=== PATIENT | female | born 1985 | race Caucasian/White ===

== ENCOUNTER 2019-01-11 20:19 | Emergency (ER) | payer SELFPAY ==
[2019-01-11 20:50] VITALS: BP 111/63
[2019-01-12] MEDS ORDERED: HYDROCODONE/ACETAMINOPHEN 5-325 MG TABLET PO ONE (00:34)
[2019-01-12] MEDS ORDERED: PREDNISONE 20 MG TABLET PO ONE (00:34)
[2019-01-12] MEDS ORDERED: AMOXICILLIN TRIHYDRATE 500 MG CAPSULE PO ONE (00:34)
--- NOTE | 2019-01-12 00:40 | ER Document Report ---
ED Medical Screen (RME) - General Chief Complaint: Sore Throat Stated Complaint: SORE THROAT Time Seen by Provider: 01/12/19 00:34 Mode of Arrival: Ambulatory Information source: Patient TRAVEL OUTSIDE OF THE [place] IN LAST 30 DAYS: No - HPI Patient complains to provider of: Very sore throat, hurts to swallow Onset: Other - 2 days ago Onset/Duration: Sudden Quality of pain: Sharp Severity: Severe Pain Level: 5 Associated Symptoms: Chills, Fever, Headache, Nausea. denies: Vomiting Exacerbated by: Other - Eating and drinking Relieved by: Denies Similar symptoms previously: No Recently seen / treated by doctor: No Notes: 01/12/19 00:35 33-year-old female with severe sore throat and pain with swallowing. Symptoms started acutely 2 days ago. Patient reports headache, stomachache, fever, painful swallowing and sore throat. - Related Data Allergies/Adverse Reactions: No Known Allergies Allergy (Unverified 02/08/13 21:48) Past Medical History - General Information source: Patient - Social History Frequency of alcohol use: None Drug Abuse: None Lives with: Alone Family history: Reviewed & Not Pertinent Pulmonary Medical History: Reports: Hx COPD Psychiatric Medical History: Reports: Hx Attention Deficit Hyperactivity Disorder - Immunizations Hx Diphtheria, Pertussis, Tetanus Vaccination: Yes Review of Systems - Review of Systems Notes: Constitutional: Positive reported fever EENT: No eye redness. No eye pain. No ear pain. Positive sore throat and painful swallowing Cardiovascular: No chest pain. No palpitations. Respiratory: No cough. No shortness of breath. No respiratory distress. Gastrointestinal: Positive for stomachache, nausea and vomiting. No diarrhea. Genitourinary: Atraumatic. No lesions. No pain. No discharge. Musculoskeletal: Atraumatic. No swelling. No deformities. Skin: No rash or lesions. Lymphatic: No swollen lymph nodes. Neurologic: Positive for headache but no syncope Psychiatric: No suicidal or homicidal ideation. Physical Exam - Vital signs Vitals: Temp Pulse Resp BP Pulse Ox 99.0 F 78 16 111/63 99 01/11/19 20:46 01/11/19 20:46 01/11/19 20:46 01/11/19 20:46 01/11/19 20:46 - Notes Notes: General: Well-developed, well-nourished. In no acute distress. Non-toxic appearing. Cardiac: Well-perfused. Regular rate and rhythm. No murmurs, rubs, or gallops. Pulmonary: No respiratory distress. No cyanosis. Bilateral lung fiels are clear to auscultation. Abdominal: Non-distended. Non-rigid. Bowels sounds are present in all four quadrants. No guarding or rebound. HEENT: Head is atraumatic. Conjunctivae not reddened. No tearing. PERRL. EOMI. Orbits atraumatic. No periorbital swelling or erythema. Oropharynx is without erythema, swelling, or exudates. 2+ exudative tonsils. Slightly muffled voice. Tolerating secretions well. No dyspnea or dysphagia Neck: Supple. No adenopathy. No meningismus. Dermatologic: Warm with good turgor. No rash. Atraumatic. Chest: Atraumatic. No chest wall tenderness to palpation. Musculoskeletal: Moves all extremities well. No range of motion deficits. no muscular or joint tenderness. No paraspinal muscle tenderness. no midline spinal tenderness or step-off. Genitourinary: Examination deferred Neurologic: No gross neurologic deficits. Psychiatric: Normal mood. Course - Re-evaluation Re-evalutation: 01/12/19 00:38 Strep screen is negative I will go ahead and treat with antibiotics - Vital Signs Vital signs: Temp Pulse Resp BP Pulse Ox 99.0 F 78 16 111/63 99 01/11/19 20:46 01/11/19 20:46 01/11/19 20:46 01/11/19 20:46 01/11/19 20:46 Doctor's Discharge - Discharge Clinical Impression: Exudative tonsillitis Condition: Good Disposition: HOME, SELF-CARE Instructions: Amoxicillin ([facility]), Corticosteroid Medication ([facility]), Tonsillitis ([facility]) Prescriptions: Amoxicillin 1 tab PO TID #30 tab Prednisone [Deltasone 20 mg Tablet] 3 tab PO DAILY 5 Days #15 tablet Referrals: [facility] [Provider Group] - Follow up as needed
== END 2019-01-12 00:52 | disposition home or self-care (01) ==
LOC: ER 20:19
DX: J03.90 Acute tonsillitis, unspecified (principal); R50.9 Fever, unspecified; R51 Headache; R11.0 Nausea; J44.9 Chronic obstructive pulmonary disease, unspecified
CPT/HCPCS: 99282; 87070; 87880; J7512

== ENCOUNTER 2020-05-01 09:47 | Emergency (ER) | payer MEDICAID ==
[2020-05-01] MEDS ORDERED: IBUPROFEN 600 MG TABLET PO ONE (11:12)
--- NOTE | 2020-05-01 11:15 | ER Document Report ---
ED Medical Screen (RME) - General Chief Complaint: Foot Pain Stated Complaint: ANKLE/FOOT PAIN Time Seen by Provider: 05/01/20 11:04 Primary Care Provider: PURVI DAVIS MD [COMMUNITY BASED STAFF] - Follow up as needed CORTNEY CASTLE DO [ACTIVE STAFF] - Follow up as needed TRAVEL OUTSIDE OF THE [place] IN LAST 30 DAYS: No - HPI Notes: 05/01/20 11:12 - Related Data Allergies/Adverse Reactions: No Known Allergies Allergy (Verified 05/01/20 11:02) Past Medical History - General Information source: Patient - Social History Chew tobacco use (# tins/day): No Frequency of alcohol use: None Drug Abuse: None Family history: Reviewed & Not Pertinent Pulmonary Medical History: Reports: Hx COPD Renal/ Medical History: Denies: Hx Peritoneal Dialysis Psychiatric Medical History: Reports: Hx Attention Deficit Hyperactivity Disorder - Immunizations Hx Diphtheria, Pertussis, Tetanus Vaccination: Yes Physical Exam - Vital signs Vitals: Temp Pulse Resp BP Pulse Ox 97.9 F 74 16 110/42 L 100 05/01/20 09:59 05/01/20 09:59 05/01/20 09:59 05/01/20 09:59 05/01/20 09:59 Course - Re-evaluation Re-evalutation: 05/01/20 11:14 Afebrile vital stable no distress. Nurses notes reviewed. Patient with 600 mg of ibuprofen. X-ray of right foot and ankle negative for fracture, dislocation or foreign body. Patient given crutches as well as an Aircast. Apply heat 20 minutes on 20 minutes off several times a day. Alternate between Tylenol and ibuprofen for pain control. Advised to follow-up with environmental programs specialist within next 24 to 48 hours. After performing a Medical Screening Examination, I estimate there is LOW risk for OPEN FRACTURE, COMPARTMENT SYNDROME, DEEP VENOUS THROMBOSIS, ACUTE TENDON RUPTURE, or NEUROVASCULAR INJURY thus I consider the discharge disposition reasonable. I have reevaluated this patient multiple times and no significant life threatening changes are noted. The patient and I have discussed the diagnosis and risks, and we agree with discharging home to closely follow-up with their primary doctor or the referral orthopedist with the understanding that symptoms and presentations can change. We also discussed returning to the Emergency Department immediately if new or worsening symptoms occur. We have discussed the symptoms which are most concerning (e.g., changing or worsening pain, numbness, weakness) that necessitate immediate return 05/01/20 12:23 - Vital Signs Vital signs: Temp Pulse Resp BP Pulse Ox 97.9 F 74 16 110/42 L 100 05/01/20 09:59 05/01/20 09:59 05/01/20 09:59 05/01/20 09:59 05/01/20 09:59 Doctor's Discharge - Discharge Clinical Impression: Right ankle pain, Right foot pain Condition: Stable Disposition: HOME, SELF-CARE Instructions: Ankle Stirrup Splint ([facility]), Nate Wrap ([facility]), Use of Crutches ([facility]), Sprained Ankle ([facility]), Soft Ankle Splint ([facility]), Ice & Elevation ([facility]) Additional Instructions: SPRAIN: Your injury is a sprain. A sprain results from stretching or tearing of the ligaments, usually from a twisting injury. The ligaments will require time and protection in order to heal properly. Many sprains are quite disabling and should be taken seriously. The usual initial treatment of sprains is cold packs, elevation, and rest of the injured area. Your physician has assessed the seriousness of your ligament injury, and has outlined a treatment plan. Understand that this treatment may change, depending on how you progress. If a re-examination was recommended, it is important that you follow up as instructed. Call the doctor any time if there is severe pain, numbness, or loss of function in the injured area. NATE WRAP: A compression dressing (nate wrap) has been placed. This helps hold the area still. It limits swelling and internal bleeding. The wrap should be comfortably snug -- not tight. You should feel a sense of pressure, but not severe pain under the wrap. Unless the physician tells you otherwise, you can adjust the wrap for comfort. If the wrap causes symptoms suggesting it's too tight -- uncomfortable pressure, swelling or discoloration beyond the wrap, numbness, or severe pain -- you must loosen the wrap. If these symptoms don't resolve promptly, return for re-evaluation. SPLINT PRECAUTIONS: A splint has been placed. This will protect the area while healing begins. Your problem does NOT normally require a cast. It MUST, however, be held still! Keep the splint on ALL THE TIME until instructed to remove it by the doctor. As you begin to use the area, be careful. You shouldn't do anything which causes discomfort -- you may disturb the injury even with the splint in place. After the initial period of rest and elevation, if splint does not prevent pain when you move, come back. You may require placement of a different splint, or a cast. If there is unexpected severe pain, or numbness, discoloration, or swelling beyond the splint, you should return at once. If you feel that the splint has broken or become loose, come back. SPRAINED ANKLE: Your sprained ankle results from stretching or tearing of the ligaments which support the ankle. This usually results from twisting the foot inward and under. The ligaments will require time and protection in order to heal pro perly. Many ankle sprains are quite disabling, and should be taken seriously. The usual treatment for an ankle sprain is cold packs; protection with tape, splints, or wraps; elevation; and staying off the ankle for at least a day. As the ankle improves, you can walk IF it's not painful to bear weight. Sports are best postponed until healing is complete. More serious sprains usually require strengthening exercises after early healing. Your physician has assessed the seriousness of the ligament injury to your ankle. However, the treatment may change, depending on how your ankle pr ogresses. If further exams were recommended, it is important that you follow through. Call the doctor if your foot becomes numb, painful, or severely swollen. ANKLE STIRRUP SPLINT: You are to use an ankle brace called a stirrup splint. This type of brace allows you to place greater stresses on the ankle without risk of re-injury, and is often used for more severe ankle injuries such as avulsion fractures and ligament ruptures. The splint can be worn over a sock or tape. For proper support, wear the splint with a shoe over it. It's important that the splint fit properly. Adjust the heel tension, if needed. If your splint has air bladders, peel back the bottom of each air bladder, then move the Velcro attachment of the heel strap up or down. Air bladder pressure can be adjusted by pulling up the valve at the top, threading the air tube down into the main bladder, then blowing air into the bladder or squeezing it out. The two sides of the stirrup can be moved forward or back on your ankle by changing the attachment of the main straps. If you are unable to use the ankle comfortably in the splint, return for re-evaluation. SOFT ANKLE SPLINT: You are to wear a cloth ankle splint. This type of splint uses the strength of the fabric to keep the ankle from twisting. The splint can be worn over a sock, if it's more comfortable. If the splint has an adjustable strap, the strap should come up over the OUTER side of the ankle. This strap should be pulled tight enough so you can't turn your ankle in towards you -- it should hold your foot so the sole can't be turned towards at the other foot. You should start out slow. Like a new shoe, the splint may take some "breaking in." You will get blisters if you are too active at first. No ankle brace provides absolute protection. You must avoid activities which put your ankle at risk. Work on strengthening your ankle -- strength is your best protection against re-injury. Call the doctor if you can't do your normal activities in the ankle brace. USE OF CRUTCHES: The doctor has recommended that you not bear weight at this time. You will need to use crutches. Adjust the crutches so the tops come to about two inches under the armpit while you are standing upright. Use your hands -- not your armpits -- to support your weight. To get into a chair, support yourself with one crutch on the injured side. Hold the chair with the other hand, then lower yourself while putting all your weight on the good leg. Going up stairs is `good leg up, step up, then bring up crutches and bad leg.' Down stairs is `bad leg and crutches down, then bring good leg down.' If you develop numbness or swelling in an arm or hand, you are using the crutches incorrectly. Return if you are having any problems with the crutches. ICE & ELEVATION: Apply ice packs frequently against the painful area. Many different schedules are recommended, such as "20 minutes on, 20 minutes off" or "one hour ice, two hours rest." If you need to work, you may need to go longer between ice treatments. You should plan to have the area ice packed AT LEAST one-fourth of the time. The ice should be applied over the wrap, tape, or splint, or over a layer of cloth -- not directly against the skin. Some ice bags have a built-in cloth and can be put directly on the skin. Your injured part should be elevated as much as possible over the next 48 hours. Try to keep the injury above the level of the heart. Avoid use of the injured area. Elevation and rest will decrease the swelling. USE OF [id number] IBUPROFEN: Ibuprofen (Advil, Nuprin, Medipren, Motrin IB) is a medication for fever and pain control. In addition, it has anti- inflammatory effects which may be beneficial, especially in the treatment of injuries. It's best to take ibuprofen with food. Persons with ulcer disease or allergy to aspirin should notify their physician of this before taking ibuprofen. Ibuprofen can be given every four to six hours, for a total of four doses daily. Age Pain or fever dose Antiinflammatory dose 6-8 yr 200 mg (1 tab) 200 mg (1 tab) 9-11 yr 200 mg (1 tab) 200-400 mg (1-2 tab) 11-14 yr 200-400 mg (1-2 tab) 400 mg (2 tab) 15-adult 400 mg (2 tab) 600 mg (3 tab) FOLLOW-UP CARE: If you have been referred to a physician for follow-up care, call the physicians office for an appointment as you were instructed or within the next two days. If you experience worsening or a significant change in your symptoms, notify the physician immediately or return to the Emergency Department at any time for re-evaluation.\\ Follow-up with environmental programs specialist and your primary care provider in the next 24 to 48 hours. Use crutches and Aircast as directed. Alternate between Tylenol and ibuprofen for pain control. Work note has been provided. Return immediately for any new or worsening symptoms. Follow up with primary care provider, call tomorrow to make followup appointment. Forms: Return to Work Referrals: CORTNEY CASTLE DO [ACTIVE STAFF] - Follow up as needed PURVI DAVIS MD [COMMUNITY BASED STAFF] - Follow up as needed
--- NOTE | 2020-05-01 11:36 | RADIOLOGY REPORT (SQ) ---
EXAM DESCRIPTION: ANKLE RIGHT COMPLETE IMAGES COMPLETED DATE/TIME: 05/01/2020 11:29 am REASON FOR STUDY: R ankle/foot pain x 3w, pain distal foot/lat ankle COMPARISON: None. NUMBER OF VIEWS: Three views. TECHNIQUE: AP, lateral, and oblique without weight bearing radiographic images acquired of the right ankle. LIMITATIONS: None. FINDINGS: MINERALIZATION: Normal. BONES: No acute fracture or dislocation. No worrisome bone lesions. No significant osteophytes. JOINTS: No effusions. SOFT TISSUES: No soft tissue swelling. No foreign body. OTHER: No other significant finding. IMPRESSION: NO SIGNIFICANT FINDING IN THE RIGHT ANKLE. NO EXPLANATION FOR PAIN. TECHNICAL DOCUMENTATION: JOB ID: [id number] 2010 [employer]- All Rights Reserved Reading location - IP/workstation name: [email or web address]
--- NOTE | 2020-05-01 11:37 | RADIOLOGY REPORT (SQ) ---
EXAM DESCRIPTION: FOOT RIGHT COMPLETE IMAGES COMPLETED DATE/TIME: 05/01/2020 11:29 am REASON FOR STUDY: R ankle/foot pain x 3w, pain distal foot/lat ankle COMPARISON: None. NUMBER OF VIEWS: Three views. TECHNIQUE: AP, lateral and oblique without weight bearing radiographic images acquired of the right foot. LIMITATIONS: None. FINDINGS: MINERALIZATION: Normal. BONES: No acute fracture or dislocation. No worrisome bone lesions. No significant osteophytes. JOINTS: No erosions. No itzel-articular osteopenia. No chondrocalcinosis. SOFT TISSUES: No swelling. No calcifications. OTHER: No other significant finding. IMPRESSION: NEGATIVE STUDY OF THE RIGHT FOOT. NO EXPLANATION FOR PAIN. TECHNICAL DOCUMENTATION: JOB ID: [id number] 2010 [employer]- All Rights Reserved Reading location - IP/workstation name: [email or web address]
--- NOTE | 2020-05-01 12:24 | ER Document Report ---
HPI - HPI Time Seen by Provider: 05/01/20 11:04 Pain Level: 5 Notes: 35-year-old female presents emergency room complaints of right ankle and right foot pain that started approximately 3 weeks ago, denies any trauma or falling. Reports pain comes and goes, worse with ambulation better with rest. Last menstrual cycle was April 16, 2020. Patient states that she feels a bony mass to the top of her foot near her right ankle. Denies any prior history of right foot or right ankle trauma. Reports pain is 5 out of 5. Has not tried anything [id number] besides BC for her pain. Denies fevers, chills, chest pain,palpitations, shortness of breath, dyspnea, nausea, vomiting, diarrhea, abdominal pain, hematuria,blurred vision, double vision, loss of vision, speech changes, LH, dizziness, syncope, headaches, wheezing, ST, URI, neck pain, weakness, bowel or bladder dysfunction, saddle anesthesia, numbness or tingling in bilateral upper or lower extremities equally, muscle paralysis, weakness in bilateral upper or lower extremities equally or rash. Denies IV drug use. MEDICATIONS: I agree with the patient medications as charted by the RN. ALLERGIES: I agree with the allergies as charted by the RN. PAST MEDICAL HISTORY/PAST SURGICAL HISTORY: Reviewed and agree as charted by RN. SOCIAL HISTORY: Reviewed and agree as charted by RN. FAMILY HISTORY: No significant familial comorbid conditions directly related to patient complaint EXAM: Reviewed vital signs as charted by RN. REVIEW OF SYSTEMS:reviewed vital signs by RN CONSTITUTIONAL : Denies fever, chills, or sweats. Denies recent illness. EENT: Denies eye, ear, throat, or mouth pain or symptoms. Denies nasal or sinus congestion or discharge. Denies throat, tongue, or mouth swelling or difficulty swallowing. CARDIOVASCULAR: Denies chest pain. Denies palpitations or racing or irregular heart beat. Denies ankle edema. RESPIRATORY: Denies cough, cold, or chest congestion. Denies shortness of breath, difficulty breathing, or wheezing. GASTROINTESTINAL: Denies abdominal pain or distention. Denies nausea, vomiting, or diarrhea. Denies blood in vomitus, stools, or per rectum. Denies black, tarry stools. Denies constipation. GENITOURINARY: Denies difficulty urinating, painful urination, burning, frequency, blood in urine, or discharge. FEMALE GENITOURINARY: Denies vaginal bleeding, heavy or abnormal periods, irregular periods. Denies vaginal discharge or odor. MUSCULOSKELETAL: Reports right ankle and right foot pain denies back or neck pain or stiffness. Denies joint pain or swelling. SKIN: Denies rash, lesions or sores. HEMATOLOGIC : Denies easy bruising or bleeding. LYMPHATIC: Denies swollen, enlarged glands. NEUROLOGICAL: Denies confusion or altered mental status. Denies passing out or loss of consciousness. Denies dizziness or lightheadedness. Denies headache. Denies weakness or paralysis or loss of use of either side. Denies problems with gait or speech. Denies sensory loss, numbness, or tingling. Denies seizures. PSYCHIATRIC: Denies anxiety or stress. Denies depression, suicidal ideation, or homicidal ideation. ALL OTHER SYSTEMS REVIEWED AND NEGATIVE. PHYSICAL EXAMINATION: GENERAL: Well-appearing, well-nourished and in no acute distress. HEAD: Atraumatic, normocephalic. EYES: Pupils equal round and reactive to light, extraocular movements intact, conjunctiva are normal. ENT: Nares patent, oropharynx clear without exudates. Moist mucous membranes. NECK: Normal range of motion, supple without lymphadenopathy LUNGS: Breath sounds clear to auscultation bilaterally and equal. No wheezes rales or rhonchi. HEART: Regular rate and rhythm without murmurs ABDOMEN: Soft, nontender, nondistended abdomen. No guarding, no rebound. No masses appreciated. Female : deferred Musculoskeletal: Normal range of motion, no pitting or edema. No cyanosis. right ankle with swelling, tenderness on anterior aspect of ankle. pain with inversion. squeeze test negative. tenderness to 2nd-4th right metatarsals on palpation. dtr +2 BLE. Limited APROM. distal pulses + 2 BLE equally. Full motor and sensory function of bilateral lower extremities. No noted open wounds or abrasion. unable to stand currently due to subjective pain. No vascular compromise. Peroneal nerve is intact with strong eversion and plantar flexion. Negative anterior drawer test. muscle strength 5/5 in BLE equally. NEUROLOGICAL: Cranial nerves grossly intact. Normal speech, normal gait. Normal sensory, motor exams PSYCH: Normal mood, normal affect. SKIN: Warm, Dry, normal turgor, no rashes or lesions noted. Dictation was performed using [employer] MD voice recognition software 05/01/20 12:23 Afebrile vital stable no distress. Nurses notes reviewed. Patient with 600 mg of ibuprofen. X-ray of right foot and ankle negative for fracture, dislocation or foreign body. Patient given crutches as well as an Aircast. Apply heat 20 minutes on 20 minutes off several times a day. Alternate between Tylenol and ibuprofen for pain control. Advised to follow-up with bilingual customer service specialist within next 24 to 48 hours. After performing a Medical Screening Examination, I estimate there is LOW risk for OPEN FRACTURE, COMPARTMENT SYNDROME, DEEP VENOUS THROMBOSIS, ACUTE TENDON RUPTURE, or NEUROVASCULAR INJURY thus I consider the discharge disposition reasonable. I have reevaluated this patient multiple times and no significant life threatening changes are noted. The patient and I have discussed the diagnosis and risks, and we agree with discharging home to closely follow-up with their primary doctor or the referral orthopedist with the understanding that symptoms and presentations can change. We also discussed returning to the Emergency Department immediately if new or worsening symptoms occur. We have discussed the symptoms which are most concerning (e.g., changing or worsening pain, numbness, weakness) that necessitate immediate return 05/01/20 12:23 - CONSTITUTIONAL Constitutional: DENIES: Fever, Chills - EENT EENT: DENIES: Sore Throat, Ear Pain, Eye problems - NEURO Neurology: DENIES: Headache, Weakness, Vision blurred, Dizzinesss / Vertigo - CARDIOVASCULAR Cardiovascular: DENIES: Chest pain - RESPIRATORY Respiratory: DENIES: Trouble Breathing, Coughing - GASTROINTESTINAL Gastrointestinal: DENIES: Abdominal Pain, Black / Bloody Stools - URINARY Urinary: DENIES: Dysuria, Urgency, Frequency - REPRODUCTIVE LMP: 21Sept Reproductive: DENIES: : - MUSCULOSKELETAL Musculoskeletal: REPORTS: Extremity pain - right foot - DERM Skin Color: Normal Past Medical History - General Information source: Patient - Social History Smoking Status: Current Every Day Smoker Chew tobacco use (# tins/day): No Frequency of alcohol use: None Drug Abuse: None Family History: Reviewed & Not Pertinent Patient has homicidal ideation: No Pulmonary Medical History: Reports: Hx COPD Renal/ Medical History: Denies: Hx Peritoneal Dialysis Psychiatric Medical History: Reports: Hx Attention Deficit Hyperactivity Disorder - Immunizations Hx Diphtheria, Pertussis, Tetanus Vaccination: Yes Vertical Provider Document - CONSTITUTIONAL Agree With Documented VS: Yes Exam Limitations: No Limitations General Appearance: WD/WN - INFECTION CONTROL TRAVEL OUTSIDE OF THE [place] IN LAST 30 DAYS: No Course - Vital Signs Vital signs: Temp Pulse Resp BP Pulse Ox 97.9 F 74 16 110/42 L 100 05/01/20 09:59 10 09:59 05/01/20 09:59 05/01/20 09:59 05/01/20 09:59 Discharge - Discharge Clinical Impression: Right ankle pain, Right foot pain Condition: Stable Disposition: HOME, SELF-CARE Instructions: Nate Wrap ([facility]), Ankle Stirrup Splint ([facility]), Use of Crutches ([facility]), Ice & Elevation ([facility]), Soft Ankle Splint ([facility]), Sprained Ankle ([facility]) Additional Instructions: SPRAIN: Your injury is a sprain. A sprain results from stretching or tearing of the ligaments, usually from a twisting injury. The ligaments will require time and protection in order to heal properly. Many sprains are quite disabling and should be taken seriously. The usual initial treatment of sprains is cold packs, elevation, and rest of the injured area. Your physician has assessed the seriousness of your ligament injury, and has outlined a treatment plan. Understand that this treatment may change, depending on how you progress. If a re-examination was recommended, it is important that you follow up as instructed. Call the doctor any time if there is severe pain, numbness, or loss of function in the injured area. NATE WRAP: A compression dressing (nate wrap) has been placed. This helps hold the area still. It limits swelling and internal bleeding. The wrap should be comfortably snug -- not tight. You should feel a sense of pressure, but not severe pain under the wrap. Unless the physician tells you otherwise, you can adjust the wrap for comfort. If the wrap causes symptoms suggesting it's too tight -- uncomfortable pressure, swelling or discoloration beyond the wrap, numbness, or severe pain -- you must loosen the wrap. If these symptoms don't resolve promptly, return for re-evaluation. SPLINT PRECAUTIONS: A splint has been placed. This will protect the area while healing begins. Your problem does NOT normally require a cast. It MUST, however, be held still! Keep the splint on ALL THE TIME until instructed to remove it by the doctor. As you begin to use the area, be careful. You shouldn't do anything which causes discomfort -- you may disturb the injury even with the splint in place. After the initial period of rest and elevation, if splint does not prevent pain when you move, come back. You may require placement of a different splint, or a cast. If there is unexpected severe pain, or numbness, discoloration, or swelling beyond the splint, you should return at once. If you feel that the splint has broken or become loose, come back. SPRAINED ANKLE: Your sprained ankle results from stretching or tearing of the ligaments which support the ankle. This usually results from twisting the foot inward and under. The ligaments will require time and protection in order to heal properly. Many ankle sprains are quite disabling, and should be taken seriously. The usual treatment for an ankle sprain is cold packs; protection with tape, splints, or wraps; elevation; and staying off the ankle for at least a day. As the ankle improves, you can walk IF it's not painful to bear weight. Sports are best postponed until healing is complete. More serious sprains usually require strengthening exercises after early healing. Your physician has assessed the seriousness of the ligament injury to your ankle. However, the treatment may change, depending on how your ankle progresses. If further exams were recommended, it is important that you follow through. Call the doctor if your foot becomes numb, painful, or severely swollen. ANKLE STIRRUP SPLINT: You are to use an ankle brace called a stirrup splint. This type of brace allows you to place greater stresses on the ankle without risk of re-injury, and is often used for more severe ankle injuries such as avulsion fractures and ligament ruptures. The splint can be worn over a sock or tape. For proper support, wear the splint with a shoe over it. It's important that the splint fit properly. Adjust the heel tension, if needed. If your splint has air bladders, peel back the bottom of each air eliz dder, then move the Velcro attachment of the heel strap up or down. Air bladder pressure can be adjusted by pulling up the valve at the top, threading the air tube down into the main bladder, then blowing air into the bladder or squeezing it out. The two sides of the stirrup can be moved forward or back on your ankle by changing the attachment of the main straps. If you are unable to use the ankle comfortably in the splint, return for re-evaluation. SOFT ANKLE SPLINT: You are to wear a cloth ankle splint. This type of splint uses the strength of the fabric to keep the ankle from twisting. The splint can be worn over a sock, if it's more comfortable. If the splint has an adjustable strap, the strap should come up over the OUTER side of the ankle. This strap should be pulled tight enough so you can't turn your ankle in towards you -- it should hold your foot so the sole can't be turned towards at the other foot. You should start out slow. Like a new shoe, the splint may take some "breaking in." You will get blisters if you are too active at first. No ankle brace provides absolute protection. You must avoid activities which put your ankle at risk. Work on strengthening your ankle -- strength is your best protection against re-injury. Call the doctor if you can't do your normal activities in the ankle brace. USE OF CRUTCHES: The doctor has recommended that you not bear weight at this time. You will need to use crutches. Adjust the crutches so the tops come to about two inches under the armpit while you are standing upright. Use your hands -- not your armpits -- to support your weight. To get into a chair, support yourself with one crutch on the injured side. Hold the chair with the other hand, then lower yourself while putting all your weight on the good leg. Going up stairs is `good leg up, step up, then bring up crutches and bad leg.' Down stairs is `bad leg and crutches down, then bring good leg down.' If you develop numbness or swelling in an arm or hand, you are using the crutches incorrectly. Return if you are having any problems with the crutches. ICE & ELEVATION: Apply ice packs frequently against the painful area. Many different schedules are recommended, such as "20 minutes on, 20 minutes off" or "one hour ice, two hours rest." If you need to work, you may need to go longer between ice treatments. You should plan to have the area ice packed AT LEAST one-fourth of the time. The ice should be applied over the wrap, tape, or splint, or over a layer of cloth -- not directly against the skin. Some ice bags have a built-in cloth and can be put directly on the skin. Your injured part should be elevated as much as possible over the next 48 hours. Try to keep the injury above the level of the heart. Avoid use of the injured area. Elevation and rest will decrease the swelling. USE OF [id number] IBUPROFEN: Ibuprofen (Advil, Nuprin, Medipren, Motrin IB) is a medication for fever and pain control. In addition, it has anti- inflammatory effects which may be beneficial, especially in the treatment of injuries. It's best to take ibuprofen with food. Persons with ulcer disease or allergy to aspirin should notify their physician of this before taking ibuprofen. Ibuprofen can be given every four to six hours, for a total of four doses daily. Age Pain or fever dose Antiinflammatory dose 6-8 yr 200 mg (1 tab) 200 mg (1 tab) 9-11 yr 200 mg (1 tab) 200-400 mg (1-2 tab) 11-14 yr 200-400 mg (1-2 tab) 400 mg (2 tab) 15-adult 400 mg (2 tab) 600 mg (3 tab) FOLLOW-UP CARE: If you have been referred to a physician for follow-up care, call the physicians office for an appointment as you were instructed or within the next two days. If you experience worsening or a significant change in your symptoms, notify the physician immediately or return to the Emergency Department at any time for re-evaluation.\\ Follow-up with bilingual customer service specialist and your primary care provider in the next 24 to 48 hours. Use crutches and Aircast as directed. Alternate between Tylenol and ibuprofen for pain control. Work note has been provided. Return immediately for any new or worsening symptoms. Follow up with primary care provider, call tomorrow to make followup appointment. Forms: Return to Work Referrals: PURVI DAVIS MD [COMMUNITY BASED STAFF] - Follow up as needed CORTNEY CASTLE DO [ACTIVE STAFF] - Follow up as needed
[2020-05-01 12:30] VITALS: BP 102/56
== END 2020-05-01 12:30 | disposition home or self-care (01) ==
LOC: ER 09:47
DX: M25.571 Pain in right ankle and joints of right foot (principal); M79.671 Pain in right foot; M25.471 Effusion, right ankle; F17.200 Nicotine dependence, unspecified, uncomplicated; J44.9 Chronic obstructive pulmonary disease, unspecified
CPT/HCPCS: 99283; 73610; 73630; J3490